=== PATIENT | male | born 1990 | race Caucasian/White ===

== ENCOUNTER 2023-04-07 15:47 | Emergency (ER) | payer SELFPAY ==
[~2023-04-07] VITALS: Ht 170.2 cm; Wt 73.0 kg
[2023-04-07 15:52] VITALS: BP 158/96; PULSE 112; RESP 16; TEMP 97.5; O2SAT 99
[2023-04-07] MEDS ORDERED: NITROGLYCERIN 0.4MG TABLET SL SL PRN (16:15)
[2023-04-07] MEDS ORDERED: DIAZEPAM 5 MG/ML 2ML CPJ IV ONE (16:15)
[2023-04-07] MEDS ORDERED: SODIUM CHLORIDE 0.9% 1,000 ML IV ONE (16:15)
[2023-04-07] MEDS ORDERED: ASPIRIN 81MG TABLET PO ONE (16:15)
[2023-04-07] MEDS ORDERED: FOLIC ACID 1 MG, THIAMINE HCL 100 MG, MVI, ADULT NO.1 10 ML in DEXTROSE 5% WATER 1,000 ML IV ONE ×4 (16:45)
== END 2023-04-07 17:04 | disposition left against medical advice (07) ==
LOC: ER 15:47
DX: R07.9 Chest pain, unspecified (principal); F10.239 Alcohol dependence with withdrawal, unspecified; F14.90 Cocaine use, unspecified, uncomplicated; Y90.9 Presence of alcohol in blood, level not specified
CPT/HCPCS: 99283; 93005; J7030; J3411; J3490; J7070